=== PATIENT | male | born 1990 | race Two or more races ===

== ENCOUNTER → 2019-03-08 | Outpatient (CLI) | payer MEDICAID ==
[2019-03-08 11:30] LABS: Basophils % (A) 1 %; Eosinophils # (A) 0.1 k/uL (0-0.7); Eosinophils % (A) 3 %; HCT 39.9 % (39.0-53.0); HGB 13.1 gm/dL (13.0-17.5); Lymphocytes % (A) 31 %; MCH 28.1 pg (25.0-35.0); MCHC 32.7 g/dL (31.0-37.0); MCV 85.8 fL (80.0-100.0); Mean Platelet Volume 7.9; Monocytes # (A) 0.2 k/uL (0-1.0); Monocytes % (A) 5 %; Neutrophils # (A) 1.9 k/uL (1.3-7.7); Neutrophils % (A) 59 %; Platelet Count 210 k/uL (150-450); RBC 4.65 m/uL (4.30-5.90); RDW 13.6 % (11.5-15.5); WBC 3.3 k/uL (3.8-10.6)
[2019-03-08 11:38] LABS: Appearance,Urine Clear (Clear); Bilirubin,Urine Negative (Negative); Blood,Urine Negative (Negative); Color,Urine Yellow; Glucose,Urine (UA) Negative (Negative); Ketones,Urine Negative (Negative); Leukocyte Esterase,Urine Negative (Negative); Nitrite,Urine Negative (Negative); Protein,Urine Negative (Negative); Specific Gravity,Urine 1.026 (1.001-1.035); Urobilinogen,Urine <2.0 mg/dL (<2.0)
[2019-03-08 16:40] LABS: Albumin 4.3 g/dL (3.80-4.90); Albumin/Globulin Ratio 1.95 (1.60-3.17); Anion Gap 6.8 mmol/L (4.00-12.00); Calcium 9.4 mg/dL (8.7-10.3); Carbon Dioxide 26.2 mmol/L (21.6-31.8); Globulin 2.2 g/dL (1.6-3.3); LDL Cholesterol,Calculated 94.8 mg/dL (0.0-131.0); Potassium 4.9 mmol/L (3.5-5.5); Total Bilirubin 0.5 mg/dL (0.2-1.2); Total Protein 6.5 g/dL (6.2-8.2); VLDL Calculation 12.2 mg/dL (5.00-40.00)
[2019-03-08 16:48] LABS: T4, Free (Free Thyroxine) 1.2 ng/dL (0.80-1.80)
[2019-03-08 19:20] LABS: Hemoglobin A1C 5.4 % (4.0-6.0)
[2019-03-09 14:31] LABS: C. trachomatis,PCR Negative (Neg,Equiv); Chlamydia trachomatis Source Urine; N. gonorrhoeae,PCR Negative (Neg,Equiv); Neisseria Source Urine
== END | disposition home or self-care (01) ==
LOC: LABWHC1 10:36
PROVIDERS: ATTEND Internal Medicine Geriatric Medicine
DX: Z00.00 Encounter for general adult medical examination without abnormal findings (principal); R00.1 Bradycardia, unspecified; Z13.0 Encounter for screening for diseases of the blood and blood-forming organs and certain disorders involving the immune mechanism; Z13.1 Encounter for screening for diabetes mellitus; Z13.220 Encounter for screening for lipoid disorders
CPT/HCPCS: 36415; 80053; 80061; 81003; 83036; 84439; 84443; 85025; 87491; 87591

== ENCOUNTER → 2021-01-06 | Outpatient (CLI) | payer MEDICAID ==
[2021-01-06 18:47] LABS: Basophils # (A) 0.01 X 10*3/uL (0.00-0.10); Basophils % (A) 0.3 %; Eosinophils # (A) 0.05 X 10*3/uL (0.04-0.35); Eosinophils % (A) 1.7 %; HCT 42.9 % (39.6-50.0); HGB 13.7 g/dL (13.0-17.0); Lymphocytes # (A) 1.37 X 10*3/uL (0.90-5.00); Lymphocytes % (A) 47.7 %; MCH 27.8 pg (27.0-32.0); MCHC 31.9 g/dL (32.0-37.0); Mean Platelet Volume 11.2 fL (9.5-12.2); Neutrophils # (A) 1.24 X 10*3/uL (1.80-7.70); Neutrophils % (A) 43.3 %; Platelet Count 233 X 10*3/uL (140-440); RBC 4.93 X 10*6/uL (4.40-5.60); RDW 12.7 % (11.5-14.5); WBC 2.87 X 10*3/uL (4.50-10.00)
[2021-01-06 19:39] LABS: African American GFR (CKD) 130.5 (60.0-200.0); Albumin 4.7 g/dL (3.80-4.90); Albumin/Globulin Ratio 1.96 (1.60-3.17); Anion Gap 5.8 mmol/L (4.00-12.00); BUN/Creat Ratio 21.11 Ratio (12.00-20.00); Calcium 9.9 mg/dL (8.7-10.3); Carbon Dioxide 28.2 mmol/L (21.6-31.8); Chol/HDL Ratio 3.67; Globulin 2.4 g/dL (1.6-3.3); LDL Cholesterol,Calculated 112.6 mg/dL (0.0-131.0); Non-African American GFR(CKD) 112.6 (60.0-200.0); Potassium 5.1 mmol/L (3.5-5.5); Total Bilirubin 0.5 mg/dL (0.2-1.2); Total Protein 7.1 g/dL (6.2-8.2); VLDL Calculation 15.4 mg/dL (5.00-40.00)
[2021-01-06 19:47] LABS: T4, Free (Free Thyroxine) 1.3 ng/dL (0.80-1.80)
== END | disposition home or self-care (01) ==
LOC: LABWHC1 10:11
PROVIDERS: ATTEND Internal Medicine Geriatric Medicine
DX: Z00.00 Encounter for general adult medical examination without abnormal findings (principal); E55.9 Vitamin D deficiency, unspecified
CPT/HCPCS: 36415; 80053; 80061; 83036; 84439; 84443; 85025

== ENCOUNTER → 2021-08-19 | Outpatient (CLI) | payer MEDICAID, OTHER | END | disposition home or self-care (01) | LOC: LABWHC1 18:32 | PROVIDERS: ATTEND Emergency Medicine | DX: Z20.822 Contact with and (suspected) exposure to COVID-19 (principal) | CPT/HCPCS: 87635 ==

== ENCOUNTER → 2021-08-20 | Outpatient (CLI) | payer MEDICAID, OTHER | END | disposition home or self-care (01) | LOC: LABMAIN 21:46 | PROVIDERS: ATTEND Emergency Medicine | DX: Z03.818 Encounter for observation for suspected exposure to other biological agents ruled out (principal); Z20.828 Contact with and (suspected) exposure to other viral communicable diseases | CPT/HCPCS: 87635 ==

== ENCOUNTER → 2022-02-23 | Outpatient (CLI) | payer MEDICAID, OTHER ==
[2022-02-23 14:25] LABS: Basophils # (A) 0.03 X 10*3/uL (0.00-0.10); Basophils % (A) 0.9 %; Eosinophils # (A) 0.04 X 10*3/uL (0.04-0.35); Eosinophils % (A) 1.2 %; HCT 43.4 % (39.6-50.0); HGB 14.1 g/dL (13.0-17.0); Immature Grans, Automated 0 %; Lymphocytes # (A) 1.31 X 10*3/uL (0.90-5.00); Lymphocytes % (A) 38.6 %; MCH 27.8 pg (27.0-32.0); MCHC 32.5 g/dL (32.0-37.0); MCV 85.4 fL (80.0-97.0); Mean Platelet Volume 10.7 fL (9.5-12.2); Monocytes # (A) 0.23 X 10*3/uL (0.20-1.00); Monocytes % (A) 6.8 %; NRBC Per 100 WBC 0 /100 WBCS (0.0-0.0); Neutrophils # (A) 1.78 X 10*3/uL (1.80-7.70); Neutrophils % (A) 52.5 %; Platelet Count 225 X 10*3/uL (140-440); RBC 5.08 X 10*6/uL (4.40-5.60); RDW 12.9 % (11.5-14.5); WBC 3.39 X 10*3/uL (4.50-10.00)
[2022-02-23 16:20] LABS: % Iron Saturation 22.95 (15.00-50.00); ALT 22 U/L (10-49); AST 14 U/L (14-35); African American GFR (CKD) 134.3 (60.0-200.0); Albumin 4.8 g/dL (3.8-4.9); Albumin/Globulin Ratio 1.92 (1.60-3.17); Alkaline Phosphatase 68 U/L (41-126); BUN/Creat Ratio 16.59 Ratio (12.00-20.00); Blood Urea Nitrogen 13.7 mg/dL (9.0-27.0); Calcium 9.9 mg/dL (8.7-10.3); Carbon Dioxide 25.7 mmol/L (20.0-27.5); Chloride 104 mmol/L (96-109); Globulin 2.5 g/dL (1.6-3.3); Glucose 95 mg/dL (70-110); Iron 91 ug/dL (65-175); LDL Cholesterol,Calculated 145.2 mg/dL (0.0-131.0); Non-African American GFR(CKD) 115.8 (60.0-200.0); Potassium 4.5 mmol/L (3.5-5.5); Sodium 138 mmol/L (135-145); Total Iron Binding Capacity 395 ug/dL (228-460); Total Protein 7.3 g/dL (6.2-8.2); VLDL Calculation 17.68 mg/dL (5.00-40.00)
== END | disposition home or self-care (01) ==
LOC: LABWHC1 09:45
PROVIDERS: ATTEND Internal Medicine Geriatric Medicine
DX: D72.819 Decreased white blood cell count, unspecified (principal); E78.5 Hyperlipidemia, unspecified; D50.9 Iron deficiency anemia, unspecified
CPT/HCPCS: 36415; 80053; 80061; 83540; 83550; 84443; 85025